=== PATIENT | male | born 1960 | race African-American/Black ===

== ENCOUNTER 2017-06-12 01:48 | Inpatient (IN) | payer MEDICARE ==
[2017-06-12] VITALS (14 sets, daily range): BP systolic 91–151; BP diastolic 59–109
[~2017-06-12] VITALS: Ht 175.3 cm; Wt 101.6 kg
[~2017-06-12 01:48] MED LIST: ASPIR 8181 MG PO; BACTRIM DS TAB1 EACH PO; JANUMET 50-1,01 EACH PO; LIPITOR10 MG PO; LISINOPRIL10 MG PO; METFORMIN HCL500 MG PO; NORCO 5-325 TA1 EACH PO; PLAVIX 75 MG TA75 M1 PO; PREDNISONE 10 M10 M1 PO; TRAMADOL 50 MG50 MG PO
[2017-06-12 02:06] LABS: HEMATOCRIT 39.1 % (42.0-52.0); MCH 25.6 pg (26.0-34.0); MCHC 33.2 g/dL (28.0-37.0); MCV 77.2 fL (80.0-100.0); MPV 7.8 fl. (7.2-11.1); NUCLEATED RBCS 0 /100WBC; PLATELET COUNT* 215 thou/uL (150-400); RBC 5.07 mil/uL (4.50-6.00); RDW-CV 15.8 % (10.5-14.5); WBC 7.5 thou/uL (4.0-11.0)
[2017-06-12] MEDS ORDERED: CARVEDILOL12.5 MG (02:06)
[2017-06-12] MEDS ORDERED: RANEXA500 MG (02:06)
[2017-06-12] MEDS ORDERED: NORVASC5 MG (02:06)
[2017-06-12] MEDS ORDERED: CITRACAL + BON1 EACH (02:07)
[2017-06-12] MEDS ORDERED: UNICOMPLEX M TA1 TA1 (02:07)
[2017-06-12] MEDS ORDERED: COQ-10100 MG (02:08)
[2017-06-12] MEDS ORDERED: OMEGA-31000 M1 (02:08)
[2017-06-12] MEDS ORDERED: OSTERA TABLET1 EAC1 (02:09)
[2017-06-12 02:16] LABS: INR 1.1; PROTIME 10.3 Seconds (9.20-11.50)
[2017-06-12 02:26] LABS: ABSOLUTE LYMPHOCYTES 0.9 thou/uL (0.8-5.3); ABSOLUTE MONOCYTES 0.8 thou/uL (0.0-1.2); ABSOLUTE NEUTROPHILS 5.8 thou/uL (1.6-8.1); ANISOCYTOSIS Occasional; PLATELET ESTIMATE ADEQUATE; TOXIC GRANULATION 1+
[2017-06-12 02:27] LABS: CLUMPED PLTS FEW
[2017-06-12 02:28] LABS: CALCIUM 9.3 mg/dL (8.5-10.1); CREATININE 1.1 mg/dL (0.6-1.3); POTASSIUM 3.7 mmol/L (3.5-5.1)
[2017-06-12 02:39] LABS: ALBUMIN 3.8 g/dL (3.4-5.0); TOTAL BILIRUBIN 0.4 mg/dL (<0.1-1.0); TOTAL PROTEIN 7.8 g/dL (6.4-8.2)
--- NOTE | 2017-06-12 04:54 | NUR ---
PT ADMIT TO AT 0340. PT ALERT ORIENTED. DENIES CP. UP AD KYREE. NO SLIP SOCKS PLACED ON PT. O2 AT 2 LITERS NC. NTG OINT ON L CHEST. TELEMETRY SHOWS SR. WILL CONTINUE TO MONITOR.
--- NOTE | 2017-06-12 06:39 | NUR ---
PT LAST TROPONIN 0.11. DR DOBBS NOTIFIED VIA YOU CALL
[2017-06-12 09:49] LABS: CHOLESTEROL 145 mg/dL (<200); HDL CHOLESTEROL 67 mg/dL (>40); LDL CHOLESTEROL 66 mg/dL (<100); TC:HDL 2.2 Ratio (Not establshd); TRIGLYCERIDE 63 mg/dL (<150); VLDL 13 mg/dL (<40)
[2017-06-12 09:50] LABS: SERUM ASSESSMENT Clear
--- NOTE | 2017-06-12 10:54 | NUR ---
PT BACK FROM SENIOR QUALITY TECHNICIAN. PLAN TO TRANSFER TO [facility] FOR CABG. DR FAUSTINO CHENEY. WILL AWAIT TRANSFER ORDERS
[2017-06-12] MEDS ORDERED: LEVAQUIN 500 M500 M2 PO (11:25)
--- NOTE | 2017-06-12 11:42 | EKG ---
[place] [address] ELECTROCARDIOGRAM REPORT Name: AYLEEN NASCIMENTO Room: [address] ADM IN .R.#: [id number] Admission: 06/12/17 Attend Phys: Kiran Navarro MD Discharge: Date of : 62 Report #: [id number] THIS REPORT FOR: //name// [facility] ED Test Date: 2017-06-12 Test Time: 01:51:58 Pat Name: AYLEEN NASCIMENTO Department: Room: [facility] Gender: M Oil Pit Attendant: JACQUELIN Simpson : 1960 Requested By: Maia Chapman Order Number: [id number] MD: Ash Lane Measurements Intervals [place] Rate: 68 P: 28 WI: 162 QRS: 13 QRSD: 96 T: 192 QT: 405 QTc: 431 Interpretive Statements Sinus rhythm LVH with secondary repolarization abnormality Compared to ECG 12/20/2016 14:17:03 No significant changes Electronically Signed On 06-12-2017 11:41:[address] [email or web address] <ELECTRONICALLY SIGNED> By: Ash Lane MD, [facility] 06/12/[address] MD, [facility] /EPI
--- NOTE | 2017-06-12 11:44 | NUR ---
CM ASSESSMENT: Pt is A&O. Resides at home with . Children in room at bedside. Plan for Pt to transfer to [facility] for open heart surgery. CM spoke with Nury with [facility] transfer team, awaiting call back with accepting Dr, room assignment and nurse report number. Chart copied. EMTALA form iniated, copy to be sent with Pt. Ambulance transport will be arranged at ct.
--- NOTE | 2017-06-12 11:46 | EKG ---
[place] [address] ELECTROCARDIOGRAM REPORT Name: AYLEEN NASCIMENTO Room: [address] ADM IN .R.#: [id number] Admission: 06/12/17 Attend Phys: Kiran Navarro MD Discharge: Date of : 62 Report #: [id number] THIS REPORT FOR: //name// [facility] Test Date: 2017-06-12 Test Time: 10:29:04 Pat Name: AYLEEN NASCIMENTO Department: Room: [address] Gender: M Observatory Director: : 1960 Requested By: Ash Lane Order Number: [id number] Sincere MD: Ash Lane Measurements Intervals [place] Rate: 71 P: 35 ME: 168 QRS: 21 QRSD: 91 T: 234 QT: 435 QTc: 473 Interpretive Statements Sinus rhythm Repol abnrm suggests ischemia, diffuse leads Electronically Signed On 06-12-2017 11:46:[address] [email or web address] <ELECTRONICALLY SIGNED> By: Ash Lane MD, [facility] 06/12/[address] MD, FACC /EPI
--- NOTE | 2017-06-12 18:13 | CARD ---
[address] [address] CARDIAC CATH REPORT Name: AYLEEN NASCIMENTO Room: [address] IN .#: [id number] Admission: 06/12/17 Attend Phys: Kiran Navarro MD Discharge: Date of : 62 Report #: [id number] THIS REPORT FOR: //name// APPROVED REPORT Study performed: 06/12/2017 08:57:26 Patient Details Patient Status: In-Patient Room #: The patient is a 56 year-old male Event Personnel Ash Lane Theater Projectionist, Juanito Vallejo (Rudi) Silver Macario James Monitor, Marisela Romano RN piano mechanic Performed cardiac cath Indication Unstable angina Risk Factors Arterial Hypertension, Hypercholesterolemia, Coronary Artery Disease, Diabetes Previous Procedures/Diagnoses Previous PCI Admission/Lab Medications/Medications given during procedure Heparin Low Molecular Weight Procedure Narrative The patient was brought electively to the Cardiac Catheterization Laboratory and was prepped and draped in a sterile manner. The right femoral was infiltrated with 1% Lidocaine subcutaneous anesthesia. A 6fr Ultimum Sheath sheath was inserted into the right femoral artery. Coronary angiography was performed using coronary diagnostic catheters. The right coronary system was accessed and visualized with a MTP catheter. The left coronary system was accessed and visualized with a Diagnostic - JL4 catheter. The left ventricle was accessed and visualized with a Diagnostic - PIGTAIL catheter. Left ventricular/Aortic Valve gradient assessed via catheter pullback. Left ventriculogram was performed in FLETCHER projection. Closure device was deployed with a 6 Fr Mynx. The patient tolerated the procedure well and there were no complications [place] [address] CARDIAC CATH REPORT Name: AYLEEN NASCIMENTO Room: [address]#: [id number] Admission: 06/12/17 Attend Phys: Kiran Navarro MD Discharge: Date of : 62 Report #: [id number] There was no hematoma. Patient was given lovenox 100 mg sq Intraoperative Conscious Sedation Fentanyl 25 mcg Versed 2 mg Fluoro Time: 7.6 minutes Dose: DAP 25451 cGycm2 1252 mGy Contrast Type and Amount: Omnipaque 230 ml Coronary Angiography The patient's coronary anatomy is co- dominant. Diagnostic Cath Left Main 0% stenosis LAD mid stent that covered the takeoff of the 3rd diagonal branch. 90% discrete stenosis in the stent Diagonal 3 long stent with tubular 80% stenosis Circumflex 30% mid stenosis Right Coronary unusual superior takeoff from the right cusp. Stents noted in the proximal and mid rca. Proximal stent had a tubular 70% restenosis. Distal 80% stenosis noted beyond the acute margin Left Ventriculography The left ventricular ejection fraction is estimated to be 30-35%. Left ventricular wall motion abnormalities are present. There is 1+ mitral insufficiency. akinesis noted of the distal anteroapical wall Hemodynamics The aortic pressure is 151/95 mmHg with a mean of 76 mmHg. The left ventricular pressure is 111/8 mmHg with a mean of mmHg. The left ventricular end diastolic pressure is 20 mmHg. There was no gradient across the aortic valve upon pullback. Pullback from the left ventricle to the aorta revealed no gradient across the aortic valve. Conclusion 1. moderate left ventricular systolic dysfunction 2. 90% restenosis of a stent in the mid lad 3. 80% restenosis of a stent in the 3rd diagonal branch 4. 70% restenosis of a stent in the proximal rca, and 80% stenosis noted in [place] [address] CARDIAC CATH REPORT Name: AZAMAYLEEN L Room: [address] IN [facility]#: [id number] Admission: 06/12/17 Attend Phys: Kiran Navarro MD Discharge: Date of : 62 Report #: [id number] Recommendations CABG <ELECTRONICALLY SIGNED> By: Ash Lane MD, FACC 06/12/171812 [address] MD, FACC /INF
--- NOTE | 2017-06-12 18:50 | NUR ---
PT HAD HEART CATH THIS AM. PLANNED TRANSFER TO [facility] FOR POSSIBLE CABG. PT DENIES CHEST PAIN. VSS. NO COMPLICATIONS FROM HEART CATH
--- NOTE | 2017-06-12 19:26 | NUR ---
REPORT CALLED TO BHARTI AT [facility] IN CCU. PT NOTIFIED OF DC. PT A&OX4. LEFT UNIT VIA CJC
[2017-06-13] MEDS ORDERED: PREDNISONE 5 MG5 M1 PO (09:49)
--- NOTE | 2017-06-13 13:18 | CON ---
[address] [address] CONSULTATION Name: AYLEEN NASCIMENTO Room: [address] IN M.R.#: [id number] Admission: 06/12/17 Attend Phys: Kiran Navarro MD Discharge: 06/12/17 Date of : 62 Report #: [id number] THIS REPORT FOR: //name// CC: Kiran Vazquez MD DATE OF SERVICE: 06/12/2017 HISTORY OF PRESENT ILLNESS: The patient is a 56-year-old black male who I was asked to see in the hospital today after he complained of chest pain. The patient initially presented to [facility] in 2011. He apparently underwent coronary artery stenting at [facility]. He had been followed by my partner, Dr. Becerril. He then presented to [place] last December with intermittent chest tightness. I saw him in consultation and felt his symptoms were consistent with unstable angina. I then performed a cardiac catheterization in December. This was performed from the right femoral artery. I attempted it from the right radial artery, but he had a very tortuous right innominate artery and it was therefore performed from the right femoral artery. Results, the LAD had a long stent that started proximal to the second diagonal branch and extended beyond the second diagonal branch, there is a 60% instent restenosis. The first diagonal branch had a proximal 50% stenosis and the second diagonal branch had a long stent with 80% restenosis. The right coronary had an usual takeoff at right coronary cusp, had a long proximal 95% restenosis, posterior descending branch had a mid 80% stenosis. No ventriculogram was performed. Aggrastat was used. A 6-Angolan multipurpose guide catheter was used because of the unusual takeoff of the right coronary ostium. I was unable to advance a drug-eluting stent to the area of stenosis. I therefore placed two bare-metal stents. He tolerated the procedure well. He is fortunately stopped smoking since that time. The patient saw me in the clinic in January. He then saw my nurse practitioner in April. The patient notes occasional lightheadedness. He was started on Ranexa and has had no further chest pain until the past few days. He has now had recurrent squeeze in the left side of his chest, relieved with nitroglycerin. It occurred several times a day. He had an episode last night that radiated into his left arm. Because of recurrent chest pain, he finally came to the emergency room last night and was admitted. He does note exertional dyspnea, but no palpitation, syncope, or edema. He has had no coughing or blood in stool. The pain is not related to food. He has had no trauma or rash on his chest. PAST MEDICAL HISTORY: Otherwise was significant for shoulder surgery, previous ruptured spleen, he was seen by Dr. Guo in the past and diagnosed with sarcoidosis. He has a history of diabetes, hypertension, and hyperlipidemia. MEDICATIONS: Consist of amlodipine, aspirin, Lipitor, carvedilol, Plavix, lisinopril, Ranexa, [place] [address] CONSULTATION Name: AYLEEN NASCIMENTO Room: [address]#: [id number] Admission: 06/12/17 Attend Phys: Kiran Navarro MD Discharge: 06/12/17 Date of : 62 Report #: [id number] ALLERGIES: He has no known drug allergies. FAMILY HISTORY: Heart disease runs in the family. SOCIAL HISTORY: He is . He and his live in [place]. He works as a cdl company driver. He previously smoked and quit in December, rarely drinks alcohol. REVIEW OF SYSTEMS: No history of stroke. He has sleep apnea, rarely uses CPAP. No history of peptic ulcer disease, liver disease, kidney disease, cancer, or psychiatric illness. PHYSICAL EXAMINATION: GENERAL: Revealed a middle-aged black male who appeared in no distress. VITAL SIGNS: Blood pressure 130/80, pulse is 60. He is afebrile. HEENT: He was anicteric. Conjunctivae are pink. Mucous membranes are moist. NECK: Veins do not appear distended. No carotid bruits. CHEST: Clear to auscultation. HEART: Regular rate and without murmur. ABDOMEN: Soft and nontender. EXTREMITIES: Had no edema. Dorsalis pedis pulse cannot be palpated. SKIN: Cool and dry. NEUROLOGIC: Nonfocal. DIAGNOSTIC DATA: His ECG last night showed a sinus rhythm, left ventricular hypertrophy, repolarization changes. There are no old EKGs to compare it to. His workup in the emergency room last night, he had a portable chest x-ray that showed apical scarring, old clavicular fracture, chronic scarring, chronic interstitial changes, atelectasis, no effusions. His lab work, his sodium 144, creatinine 1.1. His troponin was 0.11. His white blood cell count 7.5, hemoglobin 13. IMPRESSION AND RECOMMENDATIONS: 1. Unstable angina. Recommend repeat cardiac catheterization. 2. Hypertension. The patient has been on a calcium jimmy, beta jimmy and NILS inhibitor. 3. Hyperlipidemia. The patient is on a statin drug. 4. Sarcoidosis. The patient has been on chronic steroids. 5. Previous tobacco abuse. 6. Sleep apnea. The patient has not been using a CPAP. <ELECTRONICALLY SIGNED> By: Ash Lane MD, FACC 06/13/[address] MD, FACC /nt
--- NOTE | 2017-06-13 13:18 | CON ---
[address] [address] CONSULTATION Name: AYLEEN NASCIMENTO Room: [address] IN M.R.#: [id number] Admission: 06/12/17 Attend Phys: Kiran Navarro MD Discharge: 06/12/17 Date of : 62 Report #: [id number] THIS REPORT FOR: //name// CC: RINKU Vazquez DATE OF SERVICE: 06/12/2017 CARDIOLOGY CONSULTATION HISTORY OF PRESENT ILLNESS: The patient is a 56-year-old black male who was admitted in transfer from [facility] for consideration of coronary artery bypass surgery. The patient initially had stents placed in the LAD and diagonal at [facility] in 2011. He presented to [facility] in December 2016 with unstable angina. I performed a repeat cardiac catheterization in December 2016 at [facility] from the right femoral artery. No ventriculogram was performed. The stent in the mid LAD had 60% restenosis. The third diagonal branch had a long stent with a tubular 80% restenosis. The circumflex had a mild area of stenosis. The right coronary artery had ____ takeoff from the right coronary cusp. There was a 95% stenosis and a 60% narrowing prior to the acute margin. The distal right coronary artery had an 80% stenosis. I then placed two bare-metal stents in the proximal and mid right coronary artery. He has done well since that time taking aspirin and Plavix. However, he had recurrent angina and he was placed on Ranexa. The past few days, however, he has had frequent episodes of chest pressure every day. It is not related to food. He has had no bleeding. Denied any fever or cough. He does have exertional dyspnea, but no syncope. He was admitted to [facility] on the morning of June 12 after prolonged episode of chest pain. I performed repeat cardiac catheterization from the right femoral artery. This showed a discrete new 90% narrowing in the stent in the mid LAD. The third diagonal branch had a long stent with 80% restenosis. The circumflex had mild coronary artery disease. The stent in the proximal right coronary artery has 70% restenosis. The stent in the mid right coronary artery had no significant restenosis. There was an 80% stenosis of the distal right coronary artery. Ejection fraction was 35%. Because of his diffuse progressive coronary artery disease and left ventricular dysfunction, I have recommended that he be transferred to [facility] for consideration of coronary artery bypass surgery. PAST MEDICAL HISTORY: Significant for shoulder surgery, rupture of spleen in the past, diabetes, hypertension and hyperlipidemia. He was diagnosed with sarcoidosis in the past. MEDICATIONS: Consist of aspirin, Janumet, tramadol, Plavix, Lipitor, lisinopril, amlodipine, Ranexa and carvedilol. He [place] [address] CONSULTATION Name: AYLEEN NASCIMENTO [address] [id number] Admission: 06/12/17 Attend Phys: Kiran Navarro MD Discharge: 06/12/17 Date of : 62 Report #: [id number] ALLERGIES: He has no known drug allergies. FAMILY HISTORY: Heart disease runs in the family. SOCIAL HISTORY: He is . He and his live in [place], [place]. He is on disability because of sarcoidosis. He still drives a taxi. He quit smoking in last December. He rarely drinks alcohol. REVIEW OF SYSTEMS: He has had no history of stroke. He has sleep apnea, uses CPAP. No history of peptic ulcer disease, liver disease, kidney disease, cancer, psychiatric illness or chronic skin condition. PHYSICAL EXAMINATION: GENERAL: A middle-aged black male. VITAL SIGNS: Blood pressure was 140/90 and pulse 70. HEENT: Mucous members moist. NECK: No carotid bruits. CHEST: Clear to auscultation. CARDIOVASCULAR: Regular rate and rhythm. ABDOMEN: Soft and nontender. EXTREMITIES: Had no edema. Dorsalis pedis pulse cannot be palpated. SKIN: Warm and dry. IMPRESSION AND RECOMMENDATIONS: 1. Unstable angina. Severe progressive coronary artery disease, moderate left ventricular dysfunction. Recommends consideration of coronary artery bypass surgery. 2. Hypertension. The patient has been on angiotensin-converting enzyme inhibitor, calcium jimmy and beta-jimmy. 3. Diabetes. 4. Hyperlipidemia. The patient is on a statin drug. 5. Sarcoidosis. The patient is no longer on steroids. 6. Moderate left ventricular systolic dysfunction. The patient does not appear to be in heart failure at this time. <ELECTRONICALLY SIGNED> By: Ash Lane MD, [facility] 06/13/[address] MD, FAC /nt
[2017-06-24] MEDS ORDERED: LISINOPRIL5 MG PO (12:27)
[2017-06-24] MEDS ORDERED: PACERONE 200 M200 M1 PO (12:27)
[2017-06-24] MEDS ORDERED: HYDROCODONE-AP1 EAC6 PO (12:27)
[2017-06-24] MEDS ORDERED: ASA5UEC PO (12:27)
[2017-06-24] MEDS ORDERED: CARVEDILOL3.125 MG PO (12:27)
== END 2017-06-12 19:15 | disposition short-term general hospital (02) | DRG 281 ==
LOC: M.ERS 01:48 → M.2W 03:15 → M.TBA-ER 03:15 → M.ERS 03:28 → M.2W 03:37
PROVIDERS: Emergency Medicine; Internal Medicine; ADMIT Internal Medicine
PROC: 4A023N7 Measurement of Cardiac Sampling and Pressure, Left Heart, Percutaneous Approach (ICD-10-PCS; principal; 2017-06-12)
PROC: B2151ZZ Fluoroscopy of Left Heart using Low Osmolar Contrast (ICD-10-PCS; principal; 2017-06-12)
PROC: B2111ZZ Fluoroscopy of Multiple Coronary Arteries using Low Osmolar Contrast (ICD-10-PCS; principal; 2017-06-12)
DX: T82.855A Stenosis of coronary artery stent, initial encounter (principal); I21.4 Non-ST elevation (NSTEMI) myocardial infarction; I50.42 Chronic combined systolic (congestive) and diastolic (congestive) heart failure; E11.9 Type 2 diabetes mellitus without complications; D86.9 Sarcoidosis, unspecified; E78.5 Hyperlipidemia, unspecified; I10 Essential (primary) hypertension; G47.30 Sleep apnea, unspecified; Z79.82 Long term (current) use of aspirin; Z79.899 Other long term (current) drug therapy; Z82.49 Family history of ischemic heart disease and other diseases of the circulatory system; Z95.5 Presence of coronary angioplasty implant and graft; Z87.891 Personal history of nicotine dependence

== ENCOUNTER → 2017-07-06 | Outpatient (CLI) | payer MEDICARE ==
[~2017-07-06] MED LIST changes: +AMOXICILLIN875 MG PO; +ASA5UEC PO; +CARVEDILOL12.5 MG; +CARVEDILOL3.125 MG PO; +CITRACAL + BON1 EACH; +COQ-10100 MG; +HYDROCHLOROTH12.5 M1 PO; +HYDROCODONE-AP1 EAC6 PO; +LEVAQUIN 500 M500 M2 PO; +LISINOPRIL5 MG PO; +NAPROSYN500 M1 PO; +NORVASC5 MG; +OMEGA-31000 M1; +OSTERA TABLET1 EAC1; +PACERONE 200 M200 M1 PO; +PREDNISONE 5 MG5 M1 PO; +RANEXA500 MG; +UNICOMPLEX M TA1 TA1
== END ==
LOC: M.ULTRA 13:59
DX: M79.89 Other specified soft tissue disorders (principal); M79.622 Pain in left upper arm

== ENCOUNTER → 2017-07-09 | Outpatient (CLI) | payer MEDICARE | LOC: M.ULTRA 07-03 16:13 | DX: M79.622 Pain in left upper arm (principal); E78.00 Pure hypercholesterolemia, unspecified ==

== ENCOUNTER 2017-10-22 18:07 | Emergency (ER) | payer MEDICARE ==
[~2017-10-22] VITALS: Ht 177.8 cm; Wt 95.3 kg
[~2017-10-22 18:07] MED LIST changes: -AMOXICILLIN875 MG PO; -HYDROCHLOROTH12.5 M1 PO; -NAPROSYN500 M1 PO
[2017-10-22] MEDS ORDERED: HYDROCHLOROTH12.5 M1 PO (18:20)
[2017-10-22] MEDS ORDERED: NAPROSYN500 M1 PO (18:27)
[2017-10-22] MEDS ORDERED: AMOXICILLIN875 MG PO (18:27)
== END 2017-10-22 18:30 | disposition home or self-care (01) ==
LOC: M.ERS 18:07
DX: K02.9 Dental caries, unspecified (principal); E11.9 Type 2 diabetes mellitus without complications; I10 Essential (primary) hypertension; E78.5 Hyperlipidemia, unspecified; F17.210 Nicotine dependence, cigarettes, uncomplicated; Z95.5 Presence of coronary angioplasty implant and graft

== ENCOUNTER 2018-03-14 07:16 | Emergency (ER) | payer MEDICARE ==
[~2018-03-14] VITALS: Ht 175.3 cm; Wt 97.5 kg
[~2018-03-14 07:16] MED LIST changes: +AMOXICILLIN875 MG PO; +HYDROCHLOROTH12.5 M1 PO; +NAPROSYN500 M1 PO
[2018-03-14 07:25] VITALS: BP 138/95
[2018-03-14] MEDS ORDERED: FLEXERIL PO (07:44)
[2018-03-14] MEDS ORDERED: HYDROCODONE-AP1 EAC6 PO (07:44)
== END 2018-03-14 07:58 | disposition home or self-care (01) ==
LOC: M.ERS 07:16
DX: M54.5 Low back pain (principal); E11.9 Type 2 diabetes mellitus without complications; I10 Essential (primary) hypertension; E78.5 Hyperlipidemia, unspecified; F17.210 Nicotine dependence, cigarettes, uncomplicated; Z95.5 Presence of coronary angioplasty implant and graft

== ENCOUNTER 2018-04-20 00:07 | Emergency (ER) | payer MEDICARE ==
[~2018-04-20] VITALS: Ht 175.3 cm; Wt 99.8 kg
[~2018-04-20 00:07] MED LIST changes: +FLEXERIL PO
[2018-04-20 00:43] LABS: HEMATOCRIT 44.7 % (42.0-52.0); HEMOGLOBIN 14.9 gm/dL (14.0-18.0); MCH 25.8 pg (26.0-34.0); MCHC 33.3 g/dL (28.0-37.0); MCV 77.5 fL (80.0-100.0); MPV 8.4 fl. (7.2-11.1); NUCLEATED RBCS 0 /100WBC; PLATELET COUNT* 205 thou/uL (150-400); RBC 5.76 mil/uL (4.50-6.00); WBC 8.3 thou/uL (4.0-11.0)
[2018-04-20 00:48] LABS: ANION GAP 10 mmol/L (7-16); BUN 15 mg/dL (7-18); CHLORIDE 105 mmol/L (98-107); CO2 30 mmol/L (21-32); CREATININE 1.1 mg/dL (0.6-1.3); GLUCOSE 116 mg/dL (70-99); POTASSIUM 3.5 mmol/L (3.5-5.1); SODIUM 145 mmol/L (136-145)
[2018-04-20 00:50] LABS: PROTIME 10.1 Seconds (9.20-11.50)
[2018-04-20 00:59] LABS: ALBUMIN 3.8 g/dL (3.4-5.0); ALKALINE PHOSPHATASE 119 U/L (46-116); NT-PRO BRAIN NAT PEPTIDE 550 pg/mL (<300); SGOT 19 U/L (15-37); SGPT 40 U/L (30-65); TOTAL BILIRUBIN 0.4 mg/dL (<0.1-1.0); TOTAL PROTEIN 7.9 g/dL (6.4-8.2); TROPONIN-I LEVEL <0.06 ng/mL (<0.06)
[2018-04-20 02:25] LABS: ABSOLUTE EOSINOPHILS 0.2 thou/uL (0.0-0.7); ABSOLUTE LYMPHOCYTES 1.2 thou/uL (0.8-5.3); ABSOLUTE MONOCYTES 0.3 thou/uL (0.0-1.2); ABSOLUTE NEUTROPHILS 6.6 thou/uL (1.6-8.1)
[2018-04-20 02:26] LABS: PLATELET ESTIMATE ADEQUATE
[2018-04-20 02:27] LABS: ANISOCYTOSIS 1+
[2018-04-20 03:56] VITALS: BP 160/102
[2018-04-20 04:29] LABS: URINE BILIRUBIN NEGATIVE (Negative); URINE BLOOD TRACE (Negative); URINE CLARITY CLEAR; URINE COLOR YELLOW; URINE GLUCOSE-RANDOM NEGATIVE (Negative); URINE KETONES NEGATIVE (Negative); URINE LEUKOCYTES-REFLEX NEGATIVE (Negative); URINE NITRITE-REFLEX NEGATIVE (Negative); URINE PROTEIN NEGATIVE (Negative); URINE SPECIFIC GRAVITY <= 1.005 (1.005-1.030); URINE UROBILINOGEN 0.2 E.U./dl (0.2-1.0)
--- NOTE | 2018-04-20 16:30 | EKG ---
[place] [address] ELECTROCARDIOGRAM REPORT Name: AYLEEN NASCIMENTO [id number] Admission: 04/20/18 Attend Phys: Discharge: 04/20/18 Date of : 62 Report #: [id number] THIS REPORT FOR: //name// [facility] ED Test Date: 2018-04-20 Test Time: 00:14:15 Pat Name: AYLEEN NASCIMENTO Department: Room: Gender: M Blister Rust Eradicator: DANYELL : 1960 Requested By: Maia Chapman Order Number: [id number] MD: Brice Poole Measurements Intervals [place] Rate: 67 P: 9 MT: 157 QRS: 13 QRSD: 91 T: 147 QT: 421 QTc: 445 Interpretive Statements Sinus rhythm Left atrial enlargement LVH with secondary repolarization abnormality Compared to ECG 06/12/2017 10:29:04 Atrial abnormality now present Left ventricular hypertrophy now present Possible ischemia no longer present Electronically Signed On 04-20-2018 16:30:20 NON DESTRUCTIVE TESTER by Brice Poole [email or web address] <ELECTRONICALLY SIGNED> By: Brice Poole MD, [facility] 04/20/18 1630 0014 0014 Brice Poole MD, [facility] /EPI
== END 2018-04-20 03:57 | disposition home or self-care (01) ==
LOC: M.ERS 00:07
PROVIDERS: Emergency Medicine
DX: R07.89 Other chest pain (principal); G47.33 Obstructive sleep apnea (adult) (pediatric); E11.9 Type 2 diabetes mellitus without complications; I10 Essential (primary) hypertension; E78.5 Hyperlipidemia, unspecified; F17.210 Nicotine dependence, cigarettes, uncomplicated; Z95.5 Presence of coronary angioplasty implant and graft

== ENCOUNTER 2018-08-21 08:09 | Emergency (ER) | payer MEDICARE ==
[~2018-08-21] VITALS: Ht 177.8 cm; Wt 104.3 kg
[2018-08-21] MEDS ORDERED: PENICILLIN V P500 MG PO (08:43)
[2018-08-21] MEDS ORDERED: TORADOL 10 MG T10 MG PO (08:43)
[2018-08-21] MEDS ORDERED: NORCO 5-325 TA1 EAC1 PO (08:43)
[2018-08-21 08:54] VITALS: BP 155/100
== END 2018-08-21 08:54 | disposition home or self-care (01) ==
LOC: M.ERS 08:09
DX: K05.6 Periodontal disease, unspecified (principal); F17.210 Nicotine dependence, cigarettes, uncomplicated; M41.9 Scoliosis, unspecified; E11.9 Type 2 diabetes mellitus without complications; I10 Essential (primary) hypertension; E78.5 Hyperlipidemia, unspecified; G47.33 Obstructive sleep apnea (adult) (pediatric)

== ENCOUNTER 2018-12-02 22:39 | Emergency (ER) | payer MEDICARE ==
[~2018-12-02] VITALS: Ht 177.8 cm; Wt 95.3 kg
[~2018-12-02 22:39] MED LIST changes: +NORCO 5-325 TA1 EAC1 PO; +PENICILLIN V P500 MG PO; +TORADOL 10 MG T10 MG PO
[2018-12-02] MEDS ORDERED: ULTRAM 50MG TAB50 MG PO (23:02)
[2018-12-02] MEDS ORDERED: AMOXICILLIN 50500 MG PO (23:02)
[2018-12-02 23:08] VITALS: BP 214/121
== END 2018-12-02 23:08 | disposition home or self-care (01) ==
LOC: M.ERS 22:39
DX: K02.9 Dental caries, unspecified (principal); E78.5 Hyperlipidemia, unspecified; E11.9 Type 2 diabetes mellitus without complications; G47.33 Obstructive sleep apnea (adult) (pediatric); F17.210 Nicotine dependence, cigarettes, uncomplicated; Z95.5 Presence of coronary angioplasty implant and graft

== ENCOUNTER 2019-08-16 19:21 | Emergency (ER) | payer MEDICARE ==
[~2019-08-16] VITALS: Ht 177.8 cm; Wt 99.8 kg
[~2019-08-16 19:21] MED LIST changes: +AMOXICILLIN 50500 MG PO; +ULTRAM 50MG TAB50 MG PO
[2019-08-16] MEDS ORDERED: NAPROSYN500 MG PO (19:39)
[2019-08-16] MEDS ORDERED: AMOXICILLIN 50500 MG PO (19:39)
[2019-08-16 19:48] VITALS: BP 131/95
== END 2019-08-16 19:49 | disposition home or self-care (01) ==
LOC: M.ERS 19:21
DX: K08.89 Other specified disorders of teeth and supporting structures (principal); F17.210 Nicotine dependence, cigarettes, uncomplicated; I10 Essential (primary) hypertension; E78.5 Hyperlipidemia, unspecified; E11.9 Type 2 diabetes mellitus without complications; G47.33 Obstructive sleep apnea (adult) (pediatric); Z79.899 Other long term (current) drug therapy

== ENCOUNTER 2019-11-28 13:06 | Emergency (ER) | payer MEDICARE ==
[~2019-11-28] VITALS: Ht 175.3 cm; Wt 97.5 kg
[~2019-11-28 13:06] MED LIST changes: +NAPROSYN500 MG PO
[2019-11-28] MEDS ORDERED: MEDROLDOSEPACK PO (14:29)
[2019-11-28] MEDS ORDERED: NORCO 5-325 TA1 EAC2 PO (14:29)
[2019-11-28] MEDS ORDERED: NABUMETONE 750750 M1 PO (14:29)
[2019-11-28 14:57] VITALS: BP 130/82
== END 2019-11-28 14:58 | disposition home or self-care (01) ==
LOC: M.ERS 13:06
DX: M75.82 Other shoulder lesions, left shoulder (principal); I10 Essential (primary) hypertension; E11.9 Type 2 diabetes mellitus without complications; E78.5 Hyperlipidemia, unspecified; F17.210 Nicotine dependence, cigarettes, uncomplicated; Z79.899 Other long term (current) drug therapy

== ENCOUNTER 2020-02-05 06:18 | Emergency (ER) | payer MEDICARE ==
[~2020-02-05] VITALS: Ht 177.8 cm; Wt 99.8 kg
[~2020-02-05 06:18] MED LIST changes: +MEDROLDOSEPACK PO; +NABUMETONE 750750 M1 PO; +NORCO 5-325 TA1 EAC2 PO
[2020-02-05 06:55] LABS: HEMOGLOBIN 13.9 gm/dL (14.0-18.0); MCH 25.9 pg (26.0-34.0); MCV 78.4 fL (80.0-100.0); MPV 7.7 fl. (7.2-11.1); NUCLEATED RBCS 0 /100WBC; PLATELET COUNT* 228 thou/uL (150-400); RBC 5.35 mil/uL (4.50-6.00); RDW-CV 14.8 % (10.5-14.5); WBC 11.9 thou/uL (4.0-11.0)
[2020-02-05 07:09] LABS: CREATININE 1.2 mg/dL (0.6-1.3); POTASSIUM 4.4 mmol/L (3.5-5.1)
[2020-02-05 07:13] LABS: INR 0.9; PROTIME 10.1 Seconds (9.20-11.50)
[2020-02-05 07:19] LABS: ALBUMIN 3.4 g/dL (3.4-5.0); TOTAL BILIRUBIN 0.6 mg/dL (<0.1-1.0); TOTAL PROTEIN 6.9 g/dL (6.4-8.2)
[2020-02-05 07:20] LABS: ABSOLUTE LYMPHOCYTES 1.4 thou/uL (0.8-5.3); ABSOLUTE MONOCYTES 0.6 thou/uL (0.0-1.2); ABSOLUTE NEUTROPHILS 9.9 thou/uL (1.6-8.1); PLATELET ESTIMATE ADEQUATE
[2020-02-05] MEDS ORDERED: ZPAK PO (09:31)
[2020-02-05 09:46] VITALS: BP 119/91
--- NOTE | 2020-02-06 08:58 | EKG ---
[place] [address] ELECTROCARDIOGRAM REPORT Name: AZAMAYLEEN KENJI Room: [facility]#: [id number] Admission: 02/05/20 Attend Phys: Discharge: 02/05/20 Date of : 62 Date of Service: 02/05/20621 Report #: [id number] THIS REPORT FOR: //name// [facility] ED Test Date: 2020-02-05 Test Time: 06:22:54 Pat Name: AYLEEN NASCIMENTO Department: Room: Gender: Methods Examiner: : 1960 Requested By: Maia Chapman Order Number: [id number] MD: Ash Lane Measurements Intervals [place] Rate: 86 P: 31 ME: 139 QRS: 24 QRSD: 90 T: 200 QT: 331 QTc: 396 Interpretive Statements Sinus rhythm Consider left atrial enlargement LVH with secondary repolarization abnormality Compared to ECG 04/20/2018 00:14:15 No significant changes Electronically Signed On 02-06-2020 8:57:42 MANAGER MEDICAL WRITING by Ash Lane [email or web address] <ELECTRONICALLY SIGNED> By: Ash Lane MD, [facility] 02/06/[address] MD, [facility] /EPI
== END 2020-02-05 09:47 | disposition home or self-care (01) ==
LOC: M.ERS 06:18
PROVIDERS: Emergency Medicine
DX: R07.89 Other chest pain (principal); Z20.828 Contact with and (suspected) exposure to other viral communicable diseases; E11.9 Type 2 diabetes mellitus without complications; I10 Essential (primary) hypertension; E78.5 Hyperlipidemia, unspecified; G47.33 Obstructive sleep apnea (adult) (pediatric); F17.210 Nicotine dependence, cigarettes, uncomplicated; Z95.5 Presence of coronary angioplasty implant and graft

== ENCOUNTER 2020-11-11 19:05 | Emergency (ER) | payer OTHER ==
[~2020-11-11] VITALS: Ht 177.8 cm; Wt 93.0 kg
[~2020-11-11 19:05] MED LIST changes: +ZPAK PO
[2020-11-11] MEDS ORDERED: METFORMIN HCL500 M3 PO (19:18)
[2020-11-11] MEDS ORDERED: FUROSEMIDE 20 M20 M1 PO (19:19)
[2020-11-11] MEDS ORDERED: KLOR-CON M2020 MEQ PO (19:19)
[2020-11-11] MEDS ORDERED: LISINOPRIL5 MG PO (19:20)
[2020-11-11] MEDS ORDERED: LIPITOR40 MG PO (19:20)
[2020-11-11] MEDS ORDERED: ASA81BEC PO (19:20)
[2020-11-11] MEDS ORDERED: AMARYL4 MG PO (19:20)
[2020-11-11] MEDS ORDERED: SOLIQUA 100 UNIT3 ML SUBQ (19:21)
[2020-11-11 20:24] LABS: ABSOLUTE BASOPHILS 0.1 thou/uL (0.0-0.2); ABSOLUTE EOSINOPHILS 0.1 thou/uL (0.0-0.7); ABSOLUTE LYMPHOCYTES 0.8 thou/uL (0.8-5.3); ABSOLUTE MONOCYTES 0.5 thou/uL (0.0-1.2); EOSINOPHILS 1.7 %; HEMATOCRIT 39.6 % (42.0-52.0); HEMOGLOBIN 12.5 gm/dL (14.0-18.0); LYMPHOCYTES 14.7 %; MCHC 31.7 g/dL (28.0-37.0); MPV 7.5 fl. (7.2-11.1); NUCLEATED RBCS 0 /100WBC; PLATELET COUNT* 256 thou/uL (150-400); POLYS 72.6 %; RBC 5.01 mil/uL (4.50-6.00); RDW-CV 16.3 % (10.5-14.5); WBC 5.5 thou/uL (4.0-11.0)
[2020-11-11 20:37] LABS: CREATININE 0.9 mg/dL (0.6-1.3); POTASSIUM 3.8 mmol/L (3.5-5.1)
[2020-11-11 20:39] LABS: APTT 25.6 Seconds (25.0-31.3); PROTIME 10.6 Seconds (9.20-11.50)
[2020-11-11 20:48] LABS: ALBUMIN 3.7 g/dL (3.4-5.0); TOTAL BILIRUBIN 0.6 mg/dL (<0.1-1.0); TOTAL PROTEIN 7.2 g/dL (6.4-8.2)
[2020-11-12] MEDS ORDERED: ACETAMINOPHEN-1 EAC2 PO (01:24)
[2020-11-12] MEDS ORDERED: LEVAQUIN 500 M500 MG PO (01:24)
[2020-11-12 01:40] VITALS: BP 178/105
--- NOTE | 2020-11-12 12:28 | EKG ---
[place] [address] ELECTROCARDIOGRAM REPORT Name: AZAMAYLEENKORI PHILLIP Room: [facility]#: [id number] Admission: 11/11/20 Attend Phys: Discharge: 11/12/20 Date of : 62 Date of Service: 11/11/201906 Report #: [id number] THIS REPORT FOR: //name// [facility] ED Test Date: 2020-11-11 Test Time: 19:07:53 Pat Name: AYLEEN NASCIMENTO Department: Room: Gender: Life Support Technician: AUTUMN : 1960 Requested By: Mireille Romero Order Number: [id number] MD: Brice Poole Measurements Intervals [place] Rate: 70 P: 36 NM: 153 QRS: 12 QRSD: 92 T: 166 QT: 401 QTc: 433 Interpretive Statements Sinus rhythm Probable left atrial enlargement LVH with secondary repolarization abnormality Baseline wander in lead(s) II,III,aVR,aVF Compared to ECG 02/05/2020 06:22:54 No significant changes Electronically Signed On 11-12-2020 12:28:10 CDT by Brice Poole [email or web address] <ELECTRONICALLY SIGNED> By: Brice Poole MD, FACC 11/12/20 1228 06 06 Brice Poole MD, FACC /EPI
== END 2020-11-12 01:40 | disposition home or self-care (01) ==
LOC: M.ERS 19:05
PROVIDERS: Personal Emergency Response Attendant
DX: J18.9 Pneumonia, unspecified organism (principal); I16.0 Hypertensive urgency; R07.89 Other chest pain; M25.512 Pain in left shoulder; R42 Dizziness and giddiness; R20.2 Paresthesia of skin; E11.9 Type 2 diabetes mellitus without complications; I10 Essential (primary) hypertension; E78.5 Hyperlipidemia, unspecified; M19.90 Unspecified osteoarthritis, unspecified site; F17.210 Nicotine dependence, cigarettes, uncomplicated; Z79.82 Long term (current) use of aspirin; Z95.5 Presence of coronary angioplasty implant and graft; Z79.899 Other long term (current) drug therapy

== ENCOUNTER 2021-01-28 11:41 | Inpatient (IN) | payer OTHER ==
[~2021-01-28] VITALS: Ht 177.8 cm; Wt 92.0 kg
[~2021-01-28 11:41] MED LIST changes: +ACETAMINOPHEN-1 EAC2 PO; +AMARYL4 MG PO; +ASA81BEC PO; +FUROSEMIDE 20 M20 M1 PO; +KLOR-CON M2020 MEQ PO; +LEVAQUIN 500 M500 MG PO; +LIPITOR40 MG PO; +METFORMIN HCL500 M3 PO; +SOLIQUA 100 UNIT3 ML SUBQ
[2021-01-28 11:54] VITALS: BP 79/59
[2021-01-28] MEDS ORDERED: CARVEDILOL12.5 MG PO (12:00)
[2021-01-28] MEDS ORDERED: PREDNISONE 10 M10 MG PO (12:01)
[2021-01-28] MEDS ORDERED: SOLIQUA 100 UNIT3 ML (12:02)
[2021-01-28 12:26] LABS: ABSOLUTE LYMPHOCYTES 0.3 thou/uL (0.8-5.3); HEMATOCRIT 41.7 % (42.0-52.0); HEMOGLOBIN 13.9 gm/dL (14.0-18.0); MCH 25.2 pg (26.0-34.0); MCHC 33.4 g/dL (28.0-37.0); MCV 75.4 fL (80.0-100.0); MPV 8.2 fl. (7.2-11.1); NUCLEATED RBCS 0 /100WBC; PLATELET COUNT* 160 thou/uL (150-400); RBC 5.54 mil/uL (4.50-6.00); RDW-CV 15.8 % (10.5-14.5); WBC 5.4 thou/uL (4.0-11.0)
[2021-01-28 12:27] LABS: BE -6.1 mmol/L (-2 to +3); PCO2 VENOUS 37.6 mmHg (41.0-51.0); PO2 VENOUS 54.8 mmHg (35.0-45.0)
--- NOTE | 2021-01-28 12:38 | EKG ---
[place] [address] ELECTROCARDIOGRAM REPORT Name: AZAMAYLEEN KENJI Room: [facility]#: [id number] Admission: 01/28/21 Attend Phys: Discharge: Date of : 62 Date of Service: 01/28/21 1147 Report #: [id number] THIS REPORT FOR: //name// [facility] ED Test Date: 2021-01-28 Test Time: 11:47:33 Pat Name: AYLEEN NASCIMENTO Department: Room: Gender: Marketing Teacher: : 1960 Requested By: Jeffery Murray Order Number: [id number] MD: Ash Lane Measurements Intervals [place] Rate: 77 P: 41 OR: 145 QRS: 9 QRSD: 108 T: 93 QT: 383 QTc: 434 Interpretive Statements Sinus rhythm Left ventricular hypertrophy Nonspecific T abnrm, anterolateral leads Baseline wander in lead(s) V2 Compared to ECG 11/11/2020 19:07:53 no change Electronically Signed On 01-28-2021 12:37:57 CORN HUSKER MACHINE OPERATOR by Ash Lane [email or web address] <ELECTRONICALLY SIGNED> By: Ash Lane MD, FACC 01/28/[address] MD, [facility] /EPI
[2021-01-28 12:50] LABS: CALCIUM 8.8 mg/dL (8.5-10.1); CREATININE 2.4 mg/dL (0.6-1.3)
[2021-01-28 12:57] LABS: POTASSIUM 6.1 mmol/L (3.5-5.1)
[2021-01-28 13:07] LABS: ABSOLUTE NEUTROPHILS 4.9 thou/uL (1.6-8.1)
[2021-01-28 13:10] LABS: ABSOLUTE MONOCYTES 0.2 thou/uL (0.0-1.2)
[2021-01-28 13:11] LABS: PLATELET ESTIMATE ADEQUATE
[2021-01-28 13:28] LABS: ALBUMIN 2.5 g/dL (3.4-5.0); TOTAL BILIRUBIN 0.5 mg/dL (<0.1-1.0); TOTAL PROTEIN 7.4 g/dL (6.4-8.2)
[2021-01-28 13:50] LABS: POTASSIUM 5.5 mmol/L (3.5-5.1)
[2021-01-28 18:04] VITALS: BP 105/75
[2021-01-28 18:25] VITALS: BP 143/89
[2021-01-28 22:00] VITALS: BP 140/97
[2021-01-29 00:59] VITALS: BP 115/69
[2021-01-29 04:35] VITALS: BP 97/69
[2021-01-29 04:38] LABS: HEMATOCRIT 40.3 % (42.0-52.0); HEMOGLOBIN 13.1 gm/dL (14.0-18.0); MCH 24.6 pg (26.0-34.0); MCHC 32.5 g/dL (28.0-37.0); MCV 75.5 fL (80.0-100.0); MPV 8.4 fl. (7.2-11.1); RBC 5.34 mil/uL (4.50-6.00); RDW-CV 15.9 % (10.5-14.5); WBC 4.4 thou/uL (4.0-11.0)
[2021-01-29 04:58] LABS: ALBUMIN 2.2 g/dL (3.4-5.0); CALCIUM 8.8 mg/dL (8.5-10.1); MAGNESIUM 2.1 mg/dL (1.8-2.4); POTASSIUM 5.8 mmol/L (3.5-5.1); TOTAL BILIRUBIN 0.4 mg/dL (<0.1-1.0); TOTAL PROTEIN 6.9 g/dL (6.4-8.2)
[2021-01-29 08:00] VITALS: BP 118/65
[2021-01-29 10:58] LABS: PCO2 31.2 mmHg (35.0-45.0); PO2 88.4 mmHg (75.0-100.0); pH 7.377 (7.340-7.450)
[2021-01-29 12:14] VITALS: BP 142/93
[2021-01-29 14:08] LABS: CALCIUM 8.9 mg/dL (8.5-10.1); CREATININE 1.1 mg/dL (0.6-1.3); POTASSIUM 5.4 mmol/L (3.5-5.1)
[2021-01-29 16:09] VITALS: BP 144/96
[2021-01-29 19:28] LABS: URINE BILIRUBIN NEGATIVE (Negative); URINE BLOOD NEGATIVE (Negative); URINE CLARITY CLEAR; URINE COLOR YELLOW; URINE GLUCOSE-RANDOM 3+ (Negative); URINE KETONES NEGATIVE (Negative); URINE LEUKOCYTES NEGATIVE (Negative); URINE NITRITE NEGATIVE (Negative); URINE PROTEIN NEGATIVE (Negative); URINE SPECIFIC GRAVITY 1.015 (1.005-1.030); URINE UROBILINOGEN 0.2 E.U./dl (0.2-1.0)
[2021-01-29 20:00] VITALS: BP 113/84
[2021-01-30 00:12] VITALS: BP 132/98
[2021-01-30 04:00] VITALS: BP 124/88
[2021-01-30 08:00] VITALS: BP 136/90
[2021-01-30 09:32] LABS: HEMATOCRIT 43.1 % (42.0-52.0); HEMOGLOBIN 14.1 gm/dL (14.0-18.0); MCH 24.9 pg (26.0-34.0); MCHC 32.7 g/dL (28.0-37.0); MCV 76.2 fL (80.0-100.0); MPV 7.9 fl. (7.2-11.1); NUCLEATED RBCS 0 /100WBC; RBC 5.66 mil/uL (4.50-6.00); RDW-CV 15.7 % (10.5-14.5)
[2021-01-30 09:50] LABS: PLATELET COUNT* 276 thou/uL (150-400)
[2021-01-30 09:51] LABS: ALBUMIN 2.5 g/dL (3.4-5.0); APTT 31.8 Seconds (25.0-31.3); CALCIUM 9.1 mg/dL (8.5-10.1); CREATININE 1.1 mg/dL (0.6-1.3); INR 1.2; MAGNESIUM 2.1 mg/dL (1.8-2.4); PHOSPHORUS* 3.8 mg/dL (2.5-4.9); POTASSIUM 5.1 mmol/L (3.5-5.1); PROTIME 11.9 Seconds (9.20-11.50); TOTAL BILIRUBIN 0.4 mg/dL (<0.1-1.0); TOTAL PROTEIN 6.6 g/dL (6.4-8.2)
[2021-01-30 10:13] LABS: ABSOLUTE LYMPHOCYTES 0.3 thou/uL (0.8-5.3); ABSOLUTE MONOCYTES 0.2 thou/uL (0.0-1.2); ABSOLUTE NEUTROPHILS 7.4 thou/uL (1.6-8.1)
[2021-01-30 10:14] LABS: PLATELET ESTIMATE ADEQUATE
[2021-01-30 12:00] VITALS: BP 155/100
[2021-01-30 16:00] VITALS: BP 125/69
[2021-01-30 19:15] VITALS: BP 133/92
[2021-01-31] VITALS (7 sets, daily range): BP systolic 105–149; BP diastolic 75–103
[2021-01-31 04:14] LABS: ALBUMIN 2.2 g/dL (3.4-5.0); CREATININE 0.9 mg/dL (0.6-1.3); POTASSIUM 4.4 mmol/L (3.5-5.1); TOTAL BILIRUBIN 0.4 mg/dL (<0.1-1.0); TOTAL PROTEIN 6.3 g/dL (6.4-8.2)
[2021-01-31 04:28] LABS: ABSOLUTE LYMPHOCYTES 0.1 thou/uL (0.8-5.3); ABSOLUTE MONOCYTES 0.2 thou/uL (0.0-1.2); ABSOLUTE NEUTROPHILS 6.1 thou/uL (1.6-8.1); BASOPHILS 0.2 %; HEMATOCRIT 38.7 % (42.0-52.0); HEMOGLOBIN 12.5 gm/dL (14.0-18.0); LYMPHOCYTES 1.3 %; MCH 24.6 pg (26.0-34.0); MCHC 32.2 g/dL (28.0-37.0); MCV 76.4 fL (80.0-100.0); MONOCYTES 3.4 %; MPV 7.9 fl. (7.2-11.1); NUCLEATED RBCS 0 /100WBC; POLYS 95.1 %; RBC 5.07 mil/uL (4.50-6.00); RDW-CV 15.8 % (10.5-14.5); WBC 6.4 thou/uL (4.0-11.0)
[2021-01-31 05:24] LABS: PLATELET COUNT* 87 thou/uL (150-400)
[2021-01-31 16:05] LABS: ABSOLUTE LYMPHOCYTES 0.1 thou/uL (0.8-5.3); ABSOLUTE MONOCYTES 0.4 thou/uL (0.0-1.2); ABSOLUTE NEUTROPHILS 10.6 thou/uL (1.6-8.1); BASOPHILS 0.3 %; HEMATOCRIT 40.7 % (42.0-52.0); HEMOGLOBIN 13.5 gm/dL (14.0-18.0); LYMPHOCYTES 0.7 %; MCH 24.7 pg (26.0-34.0); MCHC 33.1 g/dL (28.0-37.0); MCV 74.7 fL (80.0-100.0); MONOCYTES 3.8 %; MPV 7.9 fl. (7.2-11.1); NUCLEATED RBCS 0 /100WBC; POLYS 95.2 %; RBC 5.44 mil/uL (4.50-6.00); RDW-CV 15.8 % (10.5-14.5); WBC 11.1 thou/uL (4.0-11.0)
[2021-01-31 16:09] LABS: CALCIUM 9.3 mg/dL (8.5-10.1); CREATININE 1.1 mg/dL (0.6-1.3); MAGNESIUM 1.9 mg/dL (1.8-2.4); POTASSIUM 3.7 mmol/L (3.5-5.1)
[2021-01-31 17:13] LABS: PLATELET COUNT* 313 thou/uL (150-400)
[2021-02-01 00:34] VITALS: BP 112/82
[2021-02-01 04:42] VITALS: BP 118/82
[2021-02-01 08:00] VITALS: BP 123/81
[2021-02-01 09:39] LABS: ABSOLUTE LYMPHOCYTES 0.1 thou/uL (0.8-5.3); ABSOLUTE MONOCYTES 0.4 thou/uL (0.0-1.2); HEMOGLOBIN 13.3 gm/dL (14.0-18.0); MONOCYTES 3.7 %; NUCLEATED RBCS 0 /100WBC
[2021-02-01 09:41] LABS: ABSOLUTE NEUTROPHILS 9.2 thou/uL (1.6-8.1); HEMATOCRIT 40.6 % (42.0-52.0); LYMPHOCYTES 0.8 %; MCH 24.7 pg (26.0-34.0); MCHC 32.8 g/dL (28.0-37.0); MCV 75.3 fL (80.0-100.0); MPV 7.8 fl. (7.2-11.1); PLATELET COUNT* 303 thou/uL (150-400); POLYS 95.5 %; RDW-CV 15.6 % (10.5-14.5); WBC 9.6 thou/uL (4.0-11.0)
[2021-02-01 09:49] LABS: ALBUMIN 2.3 g/dL (3.4-5.0); CALCIUM 9.1 mg/dL (8.5-10.1); CREATININE 0.9 mg/dL (0.6-1.3); TOTAL BILIRUBIN 0.5 mg/dL (<0.1-1.0); TOTAL PROTEIN 6.6 g/dL (6.4-8.2)
[2021-02-01 11:30] VITALS: BP 123/82
[2021-02-01 16:24] VITALS: BP 131/86
[2021-02-01 19:40] VITALS: BP 135/92
[2021-02-02] VITALS (10 sets, daily range): BP systolic 120–135; BP diastolic 85–95
[2021-02-02 04:19] LABS: ABSOLUTE LYMPHOCYTES 0.1 thou/uL (0.8-5.3); ABSOLUTE MONOCYTES 0.2 thou/uL (0.0-1.2); ABSOLUTE NEUTROPHILS 10.1 thou/uL (1.6-8.1); HEMATOCRIT 41.1 % (42.0-52.0); HEMOGLOBIN 13.4 gm/dL (14.0-18.0); LYMPHOCYTES 0.8 %; MCH 24.5 pg (26.0-34.0); MCHC 32.6 g/dL (28.0-37.0); MCV 74.9 fL (80.0-100.0); MONOCYTES 2.3 %; MPV 7.8 fl. (7.2-11.1); NUCLEATED RBCS 0 /100WBC; PLATELET COUNT* 305 thou/uL (150-400); POLYS 96.9 %; RBC 5.48 mil/uL (4.50-6.00); RDW-CV 15.5 % (10.5-14.5); WBC 10.4 thou/uL (4.0-11.0)
[2021-02-02 04:29] LABS: ALBUMIN 2.3 g/dL (3.4-5.0); CREATININE 0.9 mg/dL (0.6-1.3); MAGNESIUM 2.1 mg/dL (1.8-2.4); POTASSIUM 4.4 mmol/L (3.5-5.1); TOTAL BILIRUBIN 0.5 mg/dL (<0.1-1.0); TOTAL PROTEIN 6.8 g/dL (6.4-8.2)
[2021-02-03] VITALS (23 sets, daily range): BP systolic 92–148; BP diastolic 64–109
[2021-02-03 12:19] LABS: HEMATOCRIT 42.5 % (42.0-52.0); HEMOGLOBIN 13.8 gm/dL (14.0-18.0); MCH 24.4 pg (26.0-34.0); MCHC 32.5 g/dL (28.0-37.0); MCV 75.1 fL (80.0-100.0); MPV 7.5 fl. (7.2-11.1); NUCLEATED RBCS 0 /100WBC; PLATELET COUNT* 284 thou/uL (150-400); RBC 5.65 mil/uL (4.50-6.00); RDW-CV 15.9 % (10.5-14.5); WBC 12.8 thou/uL (4.0-11.0)
[2021-02-03 12:38] LABS: ALBUMIN 2.2 g/dL (3.4-5.0); CALCIUM 9.1 mg/dL (8.5-10.1); CREATININE 0.9 mg/dL (0.6-1.3); MAGNESIUM 2.2 mg/dL (1.8-2.4); POTASSIUM 3.9 mmol/L (3.5-5.1); TOTAL BILIRUBIN 0.6 mg/dL (<0.1-1.0); TOTAL PROTEIN 6.8 g/dL (6.4-8.2)
[2021-02-03 12:55] LABS: ABSOLUTE EOSINOPHILS 0.1 thou/uL (0.0-0.7); ABSOLUTE LYMPHOCYTES 0.4 thou/uL (0.8-5.3); ABSOLUTE MONOCYTES 0.4 thou/uL (0.0-1.2); ABSOLUTE NEUTROPHILS 11.9 thou/uL (1.6-8.1); PLATELET ESTIMATE ADEQUATE
[2021-02-03 16:23] LABS: URINE BILIRUBIN NEGATIVE (Negative); URINE BLOOD NEGATIVE (Negative); URINE CLARITY CLEAR; URINE COLOR YELLOW; URINE GLUCOSE-RANDOM NEGATIVE (Negative); URINE KETONES 1+ (Negative); URINE LEUKOCYTES NEGATIVE (Negative); URINE NITRITE NEGATIVE (Negative); URINE PROTEIN NEGATIVE (Negative); URINE UROBILINOGEN 0.2 E.U./dl (0.2-1.0)
[2021-02-04] VITALS (16 sets, daily range): BP systolic 98–145; BP diastolic 74–99
[2021-02-04 11:32] LABS: ABSOLUTE EOSINOPHILS 0.1 thou/uL (0.0-0.7); ABSOLUTE LYMPHOCYTES 0.1 thou/uL (0.8-5.3); ABSOLUTE MONOCYTES 0.3 thou/uL (0.0-1.2); ABSOLUTE NEUTROPHILS 13.6 thou/uL (1.6-8.1); BASOPHILS 0.2 %; EOSINOPHILS 0.4 %; HEMATOCRIT 38.7 % (42.0-52.0); HEMOGLOBIN 12.5 gm/dL (14.0-18.0); LYMPHOCYTES 0.6 %; MCH 24.6 pg (26.0-34.0); MCHC 32.2 g/dL (28.0-37.0); MCV 76.4 fL (80.0-100.0); MONOCYTES 1.9 %; MPV 7.8 fl. (7.2-11.1); NUCLEATED RBCS 0 /100WBC; PLATELET COUNT* 237 thou/uL (150-400); POLYS 96.9 %; RBC 5.07 mil/uL (4.50-6.00); RDW-CV 16.3 % (10.5-14.5)
[2021-02-04 12:02] LABS: BE -5.6 mmol/L (-2 to +3); PCO2 32.3 mmHg (35.0-45.0); pH 7.377 (7.340-7.450)
[2021-02-04 12:06] LABS: PO2 54.4 mmHg (75.0-100.0)
[2021-02-04 12:17] LABS: ALBUMIN 1.7 g/dL (3.4-5.0); CALCIUM 9.2 mg/dL (8.5-10.1); CREATININE 0.9 mg/dL (0.6-1.3); POTASSIUM 4.8 mmol/L (3.5-5.1); TOTAL BILIRUBIN 0.5 mg/dL (<0.1-1.0); TOTAL PROTEIN 6.2 g/dL (6.4-8.2)
--- NOTE | 2021-02-04 14:32 | 2DMMODE ---
[place] [address] 2 D/M-MODE ECHOCARDIOGRAM Name: AZAMAYLEENKORI PHILLIP Room: [address] ADM IN .R.#: [id number] Admission: 01/28/21 Attend Phys: Rolo Groves Discharge: Date of : 62 Date of Service: 02/04/21 1432 Report #: [id number] THIS REPORT FOR: cc: Juanito Vazquez MD, Anthony MD Holkins,Derrick Waters MD [facility] ~ APPROVED REPORT Study performed: 02/04/2021 10:43:10 EXAM: Comprehensive 2D, Doppler, and color-flow Echocardiogram Patient Location: In-Patient Room #: 105 Status: routine BSA: 2.06 HR: 63 bpm BP: 109/75 mmHg Rhythm: NSR Other Information Study Quality: Good Indications Dyspnea 2D Dimensions IVSd: 14.78 (7-11mm) LVOT Diam: 22.81 (18-24mm) LVDd: 48.91 mm PWd: 12.42 (7-11mm) Ascending Ao: 36.11 (22-36mm) LVDs: 36.37 (25-40mm) Aortic Root: 35.46 mm Volumes Left Atrial Volume (Systole) LA ESV Index: 31.00 mL/m2 Aortic Valve AoV Peak Greg.: 1.39 m/s AO Peak Gr.: 7.77 mmHg LVOT Max P.75 mmHg AO Mean Gr.: 3.89 mmHg LVOT Mean P.32 mmHg LVOT Max V: 0.83 m/s AO V2 VTI: 24.22 cm LVOT Mean V: 0.53 m/s JOSELINE (VTI): 2.67 cm2 LVOT V1 VTI: 15.84 [place] [address] 2 D/M-MODE ECHOCARDIOGRAM Name: AYLEEN NASCIMENTO Room: [address] IN ..#: [id number] Admission: 01/28/21 Attend Phys: Rolo Groves Discharge: Date of : 62 Date of Service: 02/04/21 1432 Report #: [id number] Mitral Valve E/A Ratio: 0.77 MV Decel. Time: 269.35 ms MV E Max Greg.: 0.60 m/s MV PHT: 78.11 ms MVA (PHT): 2.82 cm2 TDI E/Lateral E': 7.50 Lateral E' Greg.: 0.08 m/s Pulmonary Valve PV Peak Greg.: 0.71 m/s PV Peak Gr.: 2.01 mmHg Left Ventricle The left ventricle is normal size. There is normal LV segmental wall motion. Mild concentric left ventricular hypertrophy. Left ventricular systolic function is mildly decreased. LVEF is 50%. Grade I - abnormal relaxation pattern. Right Ventricle The right ventricle is normal size. The right ventricular systolic function is normal. Atria The left atrium size is normal. The right atrium size is normal. Aortic Valve Mild aortic valve sclerosis. No aortic regurgitation is present. There is no aortic valvular stenosis. Mitral Valve The mitral valve is normal in structure. There is no mitral valve regurgitation noted. No evidence of mitral valve stenosis. Tricuspid Valve The tricuspid valve is normal in structure. Unable to assess PA pressure. Trace tricuspid regurgitation. Pulmonic Valve The pulmonary valve is normal in structure. There is no pulmonic valvular regurgitation. Great Vessels The aortic root is normal in size. IVC [place] [address] 2 D/M-MODE ECHOCARDIOGRAM Name: AYLEEN NASCIMENTO Room: [address]#: [id number] Admission: 01/28/21 Attend Phys: Rolo Groves Discharge: Date of : 62 Date of Service: 02/04/21 1432 Report #: [id number] collapses >50% with inspiration. Pericardium There is no pericardial effusion. <Conclusion> The left ventricle is normal size. Mild concentric left ventricular hypertrophy. Left ventricular systolic function is mildly decreased. LVEF is 50%. Grade I - abnormal relaxation pattern. The right ventricle is normal size. The left atrium size is normal. Mild aortic valve sclerosis. No aortic regurgitation is present. There is no aortic valvular stenosis. The mitral valve is normal in structure. The tricuspid valve is normal in structure. IVC is normal in size and collapses >50% with inspiration. There is no pericardial effusion. There is normal LV segmental wall motion. <ELECTRONICALLY SIGNED> By: Derrick Short MD, [facility] 02/04/21 [phone] Derrick Short MD, FACC /INF
--- NOTE | 2021-02-04 16:22 | CON ---
[address] [address] CONSULTATION Name: AZAMAYLEEN KENJI Room: [address] IN M.R.#: [id number] Admission: 01/28/21 Attend Phys: Viji Reid Discharge: Date of : 62 Report #: [id number] THIS REPORT FOR: cc: Juanito Vazquez MD, Anthony MD Pervez,August PEACOCK ~ DATE OF CONSULTATION: 01/29/2021 Consult has been requested by Dr. Thomson. INDICATION FOR CONSULTATION: Acute hypoxemic respiratory failure secondary to COVID-19. HISTORY OF PRESENT ILLNESS: A 60-year-old gentleman, past medical history includes a history of sarcoidosis. The patient is on prednisone long-term. He also has an extensive history of smoking in the past, discontinued in 2017. States that he uses inhalers at home and also does have obstructive sleep apnea and uses a CPAP at home. At this time, the patient is admitted with acute shortness of breath of several days' duration. He also had altered mental status. On initial presentation, was hypotensive and was found to be in acute renal failure, creatinine of 2.4. Note that his baseline creatinine is normal. Since then, he has been fluid resuscitated. He is also being treated with dexamethasone and remdesivir. He appears to have been responding favorably to therapy. At the time of my evaluation this morning, the patient still was fairly tachypneic and was on a BiPAP with high-flow oxygen. I am told that he has improved further since then and is currently on 11 liters of oxygen. The patient previously has been significantly tachypneic, but note that he did have a metabolic acidosis on his labs, which would partially account for it. The potassium initially was 6.1 and is trending downwards. He has significantly elevated blood glucose at 370. He does have a cough. He did not describe how much sputum production he had. He does not have much swelling of lower extremities. There is no calf pain. He was on BiPAP and I evaluated him and therefore his ability to answer questions to review of systems was limited; however his review of systems is negative for 12 points except as mentioned above. PAST MEDICAL HISTORY: Sarcoidosis. He is on prednisone long-term. Bronchospasm. He is on long-term therapy for this. He may have underlying COPD as well. Sarcoidosis by itself can also cause bronchospasm. Coronary artery disease. He has had stents in the past. His last available echocardiogram is from 2015 and shows a left ventricular ejection fraction decreased to 40-45% without elevation in right heart pressures, diabetes, right shoulder surgery, [place] [address] CONSULTATION Name: AYLEEN NASCIMENTO Room: [address] ADM IN M.R.#: [id number] Admission: 01/28/21 Attend Phys: Viji Reid Discharge: Date of : 62 Report #: [id number] surgery, obstructive sleep apnea, CPAP long-term, status post CABG, hypertension, hyperlipidemia. SOCIAL HISTORY: Extensive history of smoking, discontinued in 2017. No known history of heavy alcohol use or illegal drug use. CURRENT MEDICATIONS: List in [employer] reviewed. HOME MEDICATIONS: List in [employer] also reviewed. Note that he is on long-term therapy with prednisone. ALLERGIES: No known drug allergies. FAMILY HISTORY: No pertinent family history. PHYSICAL EXAMINATION: GENERAL: He was alert, awake and oriented at the time of my evaluation. VITAL SIGNS: He was on a BiPAP at 70% FiO2 and was saturating 100%, but was still tachypneic with respiratory rate in the low 30s. I am told that his respiratory status since then has improved and he is currently breathing around 20 and off BiPAP on a 10-11 liters high-flow nasal cannula. He has a pulse of 92 and a blood pressure of 144/96. He has been saturating 100%. He is afebrile with a temperature of 36.6, low-grade fever overnight at 37.4. HEENT: Head is normocephalic and atraumatic. NECK: Does not show raised JVP, asymmetry, mass or lymph nodes. CHEST: Symmetrical expansion on inspection and palpation. On auscultation, breath sounds bilaterally equal. No added sounds. HEART: Regular. There is no murmur. ABDOMEN: Soft and nontender. EXTREMITIES: Lower extremities, no edema, no calf tenderness. SKIN: Dry and intact. NEUROLOGIC: Moves all extremities bilaterally equally and spontaneously with no focal deficit identified. LABORATORY DATA: Reviewed. Note that he has 5% bands initially, he was also in acute renal failure, which is getting better. His blood glucose is 370. There is a mild metabolic acidosis, which is compensated on his blood gases. He does have COVID-19 antigen positive. ASSESSMENT AND PLAN: 1. Acute hypoxemic respiratory failure secondary to COVID-19. Recommend keeping him on a BiPAP while asleep; okay to be off BiPAP when awake. 2. COVID-19. I agree with continuing with dexamethasone as well as remdesivir, follow liver function tests. Actemra may be of benefit; however, we do not have [address] [place] [address] CONSULTATION Name: AYLEEN NASCIMENTO Room: [address] IN .R.#: [id number] Admission: 01/28/21 Attend Phys: Viji Reid Discharge: Date of : 62 Report #: [id number] it available. I considered as to whether I should increased the dexamethasone dose considering that he is on prednisone long-term at home; however, he is reported to have had improvement in his respiratory status. His blood glucose is markedly elevated at 370; therefore, I decided to hold off for now or this will be a consideration later. 3. Pulmonary infiltrates. Note that he is on long-term prednisone and also he has 5% bands initially. Therefore, I would continue with the doxycycline, would recommend adding cefepime. Recommend also obtaining a nasal swab for methicillin-resistant Staphylococcus aureus, if possible, obtain sputum culture as well. 4. Sarcoidosis. He is a long-term therapy with prednisone. 5. Bronchospastic lung disease/possible chronic obstructive pulmonary disease; he has an extensive history of smoking. It is possible he has chronic obstructive pulmonary disease as well; sarcoidosis by itself also can cause bronchospasm. Regardless, this therapy, the same for now, we will continue with steroids. We will continue with nebulized bronchodilators. 6. Acute renal failure/hyperkalemia/mild metabolic acidosis, appears to have a favorable response to therapy already ordered by primary service and Nephrology. We will follow along. 7. Evaluation for thromboembolic phenomena. He had a reduced left ventricular ejection fraction previously. Therefore, I would go ahead and repeat an echo. We will also do a D-dimer. If elevated, will consider doing venous Dopplers. The patient, however, appears to be high risk for contrast nephropathy and therefore unless strongly indicated, I would perhaps be inclined to hold off on consider doing a CTA chest. 8. Diabetes/hyperglycemia. Pending review by the primary service. I ordered moderate dose insulin sliding scale as blood glucose is 370. 9. Deep venous thrombosis prophylaxis, Lovenox. 10. Gastrointestinal prophylaxis, on Pepcid. 11. Clostridium difficile prophylaxis, Lactinex. The patient is critically ill at this time. Total time spent providing critical care to this patient today exceeds 40 minutes. <ELECTRONICALLY SIGNED> By: August Milian MD 02/04/21 1622 [id number] Milian MD /nt
[2021-02-05] VITALS (13 sets, daily range): BP systolic 102–161; BP diastolic 71–93
[2021-02-05 09:25] LABS: ABSOLUTE BASOPHILS 0.1 thou/uL (0.0-0.2); ABSOLUTE LYMPHOCYTES 0.1 thou/uL (0.8-5.3); ABSOLUTE MONOCYTES 0.4 thou/uL (0.0-1.2); ABSOLUTE NEUTROPHILS 17.9 thou/uL (1.6-8.1); BASOPHILS 0.6 %; HEMATOCRIT 38.1 % (42.0-52.0); HEMOGLOBIN 12.2 gm/dL (14.0-18.0); LYMPHOCYTES 0.5 %; MCH 24.1 pg (26.0-34.0); MCHC 31.9 g/dL (28.0-37.0); MCV 75.5 fL (80.0-100.0); MONOCYTES 2.3 %; MPV 8.4 fl. (7.2-11.1); NUCLEATED RBCS 0 /100WBC; PLATELET COUNT* 287 thou/uL (150-400); POLYS 96.6 %; RBC 5.05 mil/uL (4.50-6.00); RDW-CV 16.2 % (10.5-14.5); WBC 18.5 thou/uL (4.0-11.0)
[2021-02-05 10:20] LABS: BE -4.5 mmol/L (-2 to +3); pH 7.374 (7.340-7.450)
[2021-02-05 10:56] LABS: ALBUMIN 2.1 g/dL (3.4-5.0); CALCIUM 9.4 mg/dL (8.5-10.1); CREATININE 0.9 mg/dL (0.6-1.3); POTASSIUM 4.1 mmol/L (3.5-5.1); TOTAL BILIRUBIN 0.5 mg/dL (<0.1-1.0); TOTAL PROTEIN 6.3 g/dL (6.4-8.2)
[2021-02-05 17:11] LABS: CALCIUM 9.5 mg/dL (8.5-10.1); CREATININE 0.9 mg/dL (0.6-1.3); MAGNESIUM 2.3 mg/dL (1.8-2.4); POTASSIUM 3.6 mmol/L (3.5-5.1)
[2021-02-06] VITALS (12 sets, daily range): BP systolic 106–123; BP diastolic 73–91
[2021-02-06 03:21] LABS: HEMATOCRIT 36.6 % (42.0-52.0); HEMOGLOBIN 11.7 gm/dL (14.0-18.0); MCH 23.9 pg (26.0-34.0); MCHC 31.9 g/dL (28.0-37.0); MCV 75.1 fL (80.0-100.0); MPV 7.9 fl. (7.2-11.1); NUCLEATED RBCS 0 /100WBC; PLATELET COUNT* 268 thou/uL (150-400); RBC 4.87 mil/uL (4.50-6.00); RDW-CV 16.2 % (10.5-14.5); WBC 17.9 thou/uL (4.0-11.0)
[2021-02-06 03:55] LABS: ALBUMIN 2.8 g/dL (3.4-5.0); CALCIUM 9.6 mg/dL (8.5-10.1); CREATININE 0.9 mg/dL (0.6-1.3); MAGNESIUM 2.4 mg/dL (1.8-2.4); POTASSIUM 3.9 mmol/L (3.5-5.1); TOTAL BILIRUBIN 0.5 mg/dL (<0.1-1.0); TOTAL PROTEIN 6.8 g/dL (6.4-8.2)
[2021-02-06 06:10] LABS: ABSOLUTE LYMPHOCYTES 0.7 thou/uL (0.8-5.3); ABSOLUTE NEUTROPHILS 17.2 thou/uL (1.6-8.1)
[2021-02-06 06:11] LABS: PLATELET ESTIMATE ADEQUATE
[2021-02-06 16:49] LABS: BE -2.2 mmol/L (-2 to +3); PCO2 VENOUS 41.1 mmHg (41.0-51.0); PO2 VENOUS 57.6 mmHg (35.0-45.0)
[2021-02-06 16:53] LABS: CALCIUM 9.6 mg/dL (8.5-10.1); MAGNESIUM 2.5 mg/dL (1.8-2.4)
[2021-02-07] VITALS (23 sets, daily range): BP systolic 98–140; BP diastolic 63–95
[2021-02-07 10:21] LABS: ABSOLUTE LYMPHOCYTES 0.1 thou/uL (0.8-5.3); ABSOLUTE MONOCYTES 0.7 thou/uL (0.0-1.2); ABSOLUTE NEUTROPHILS 19.8 thou/uL (1.6-8.1); BASOPHILS 0.2 %; EOSINOPHILS 0.1 %; HEMATOCRIT 39.5 % (42.0-52.0); HEMOGLOBIN 12.7 gm/dL (14.0-18.0); LYMPHOCYTES 0.3 %; MCH 24.4 pg (26.0-34.0); MCHC 32.2 g/dL (28.0-37.0); MCV 75.8 fL (80.0-100.0); MONOCYTES 3.2 %; MPV 7.9 fl. (7.2-11.1); NUCLEATED RBCS 0 /100WBC; PLATELET COUNT* 275 thou/uL (150-400); POLYS 96.2 %; RBC 5.21 mil/uL (4.50-6.00); RDW-CV 15.8 % (10.5-14.5); WBC 20.6 thou/uL (4.0-11.0)
[2021-02-07 10:53] LABS: ALBUMIN 2.8 g/dL (3.4-5.0); CALCIUM 9.8 mg/dL (8.5-10.1); CREATININE 0.8 mg/dL (0.6-1.3); POTASSIUM 4.3 mmol/L (3.5-5.1); TOTAL BILIRUBIN 0.5 mg/dL (<0.1-1.0)
[2021-02-07 17:24] LABS: CALCIUM 9.7 mg/dL (8.5-10.1); CREATININE 0.9 mg/dL (0.6-1.3); POTASSIUM 4.5 mmol/L (3.5-5.1)
[2021-02-08] VITALS (69 sets, daily range): BP systolic 47–212; BP diastolic 29–141
[2021-02-08 07:30] LABS: HEMOGLOBIN 13.1 gm/dL (14.0-18.0)
[2021-02-08 07:32] LABS: ABSOLUTE EOSINOPHILS 0.1 thou/uL (0.0-0.7); ABSOLUTE LYMPHOCYTES 0.2 thou/uL (0.8-5.3); ABSOLUTE MONOCYTES 0.6 thou/uL (0.0-1.2); ABSOLUTE NEUTROPHILS 23.6 thou/uL (1.6-8.1); BASOPHILS 0.2 %; EOSINOPHILS 0.3 %; HEMATOCRIT 41.4 % (42.0-52.0); LYMPHOCYTES 0.9 %; MCH 24.5 pg (26.0-34.0); MCHC 31.7 g/dL (28.0-37.0); MCV 77.3 fL (80.0-100.0); MONOCYTES 2.6 %; MPV 8.2 fl. (7.2-11.1); NUCLEATED RBCS 0 /100WBC; PLATELET COUNT* 245 thou/uL (150-400); RBC 5.35 mil/uL (4.50-6.00); RDW-CV 16.4 % (10.5-14.5); WBC 24.5 thou/uL (4.0-11.0)
[2021-02-08 07:43] LABS: ALBUMIN 2.9 g/dL (3.4-5.0); CALCIUM 9.7 mg/dL (8.5-10.1); CREATININE 0.9 mg/dL (0.6-1.3); MAGNESIUM 2.6 mg/dL (1.8-2.4); PHOSPHORUS* 3.4 mg/dL (2.5-4.9); POTASSIUM 4.3 mmol/L (3.5-5.1); TOTAL BILIRUBIN 0.5 mg/dL (<0.1-1.0); TOTAL PROTEIN 7.1 g/dL (6.4-8.2)
[2021-02-08 08:10] LABS: BE 0.9 mmol/L (-2 to +3); PCO2 48.6 mmHg (35.0-45.0); pH 7.363 (7.340-7.450)
[2021-02-08 08:12] LABS: PO2 47.6 mmHg (75.0-100.0)
[2021-02-08 10:57] LABS: LIPASE 79 U/L (73-393); TRIGLYCERIDE 123 mg/dL (<150)
[2021-02-08 11:49] LABS: BE 1.2 mmol/L (-2 to +3); PO2 63.8 mmHg (75.0-100.0)
[2021-02-08 11:51] LABS: PCO2 66.7 mmHg (35.0-45.0); pH 7.271 (7.340-7.450)
[2021-02-08 14:31] LABS: BE -6.4 mmol/L (-2 to +3)
[2021-02-08 14:36] LABS: PCO2 71.2 mmHg (35.0-45.0); pH 7.148 (7.340-7.450)
[2021-02-08 16:00] LABS: BE -5.6 mmol/L (-2 to +3)
[2021-02-08 16:03] LABS: PCO2 66.4 mmHg (35.0-45.0)
[2021-02-08 17:04] LABS: HEMATOCRIT 43.1 % (42.0-52.0); HEMOGLOBIN 13.3 gm/dL (14.0-18.0); MCH 24.1 pg (26.0-34.0); MCHC 30.9 g/dL (28.0-37.0); MCV 78.2 fL (80.0-100.0); MPV 8.5 fl. (7.2-11.1); RBC 5.52 mil/uL (4.50-6.00); WBC 23.1 thou/uL (4.0-11.0)
[2021-02-08 17:12] LABS: CALCIUM 8.4 mg/dL (8.5-10.1); CREATININE 1.8 mg/dL (0.6-1.3); MAGNESIUM 2.7 mg/dL (1.8-2.4)
[2021-02-08 17:13] LABS: POTASSIUM 5.5 mmol/L (3.5-5.1)
[2021-02-08 20:23] LABS: BE -12.1 mmol/L (-2 to +3)
[2021-02-08 20:28] LABS: PCO2 70.2 mmHg (35.0-45.0); PO2 54.7 mmHg (75.0-100.0); pH 7.062 (7.340-7.450)
[2021-02-08 21:45] LABS: PCO2 70.3 mmHg (35.0-45.0); pH 7.006 (7.340-7.450)
[2021-02-08 21:45] LABS: CALCIUM 8.7 mg/dL (8.5-10.1); MAGNESIUM 2.9 mg/dL (1.8-2.4)
[2021-02-08 21:48] LABS: POTASSIUM 6.4 mmol/L (3.5-5.1)
[2021-02-08 21:49] LABS: CREATININE 3.4 mg/dL (0.6-1.3)
[2021-02-09] VITALS (16 sets, daily range): BP systolic 39–85; BP diastolic 14–64
[2021-02-09 01:11] LABS: BE -19.9 mmol/L (-2 to +3)
[2021-02-09 01:20] LABS: PO2 55.3 mmHg (75.0-100.0)
[2021-02-09 05:08] LABS: HEMATOCRIT 51.7 % (42.0-52.0); HEMOGLOBIN 14.8 gm/dL (14.0-18.0); MCH 24.1 pg (26.0-34.0); MCHC 28.6 g/dL (28.0-37.0); MPV 9.9 fl. (7.2-11.1); NUCLEATED RBCS 1 /100WBC; RBC 6.12 mil/uL (4.50-6.00); RDW-CV 17.5 % (10.5-14.5); WBC 14.8 thou/uL (4.0-11.0)
[2021-02-09 05:19] LABS: BE -22.5 mmol/L (-2 to +3)
[2021-02-09 05:22] LABS: PCO2 54.4 mmHg (35.0-45.0); PO2 55.1 mmHg (75.0-100.0); pH 6.904 (7.340-7.450)
[2021-02-09 05:24] LABS: ALBUMIN 1.6 g/dL (3.4-5.0); CALCIUM 7.4 mg/dL (8.5-10.1); CREATININE 4.1 mg/dL (0.6-1.3); MAGNESIUM 2.3 mg/dL (1.8-2.4); TOTAL BILIRUBIN 1.6 mg/dL (<0.1-1.0); TOTAL PROTEIN 4.4 g/dL (6.4-8.2)
[2021-02-09 05:26] LABS: POTASSIUM 6.3 mmol/L (3.5-5.1)
[2021-02-09 05:31] LABS: MCV 84.4 fL (80.0-100.0); PLATELET COUNT* 80 thou/uL (150-400)
[2021-02-09 07:18] LABS: ABSOLUTE LYMPHOCYTES 0.3 thou/uL (0.8-5.3); ABSOLUTE MONOCYTES 2.1 thou/uL (0.0-1.2); ABSOLUTE NEUTROPHILS 12.4 thou/uL (1.6-8.1)
[2021-02-09 07:22] LABS: ANISOCYTOSIS 1+; GIANT PLATELETS FEW; HYPOCHROMASIA 1+; PLATELET ESTIMATE DECREASED
[2021-02-09 07:45] LABS: BE -16.1 mmol/L (-2 to +3)
[2021-02-09 07:50] LABS: PCO2 62.3 mmHg (35.0-45.0); PO2 50.4 mmHg (75.0-100.0); pH 7.005 (7.340-7.450)
[2021-02-10 12:06] LABS: MYCOPLASMA PNEUMONIA IgM <770 U/mL (0-769)
[2021-02-10 14:06] LABS: MYCOPLASMA PNEUMONIA IgG 328 U/mL (0-99)
== END 2021-02-09 08:37 | DRG 208 ==
LOC: M.ERS 11:41 → M.TBA-ER 13:53 → M.ORTHSURG 13:53 → M.ICU 02-02 19:00
PROVIDERS: Emergency Medicine; Internal Medicine; Internal Medicine Critical Care Medicine; Pediatrics; ADMIT Internal Medicine; ATTEND Internal Medicine
PROC: 5A0935A Assistance with Respiratory Ventilation, Less than 24 Consecutive Hours, High Flow/Velocity Cannula (ICD-10-PCS; principal; 2021-01-28)
PROC: 5A09357 Assistance with Respiratory Ventilation, Less than 24 Consecutive Hours, Continuous Positive Airway Pressure (ICD-10-PCS; principal; 2021-01-28)
PROC: XW033E5 Introduction of Remdesivir Anti-infective into Peripheral Vein, Percutaneous Approach, New Technology Group 5 (ICD-10-PCS; principal; 2021-01-28)
PROC: 5A09357 Assistance with Respiratory Ventilation, Less than 24 Consecutive Hours, Continuous Positive Airway Pressure (ICD-10-PCS; 2021-01-30)
PROC: 5A0935A Assistance with Respiratory Ventilation, Less than 24 Consecutive Hours, High Flow/Velocity Cannula (ICD-10-PCS; 2021-01-30)
PROC: 5A09357 Assistance with Respiratory Ventilation, Less than 24 Consecutive Hours, Continuous Positive Airway Pressure (ICD-10-PCS; 2021-01-31)
PROC: 5A0935A Assistance with Respiratory Ventilation, Less than 24 Consecutive Hours, High Flow/Velocity Cannula (ICD-10-PCS; 2021-01-31)
PROC: 5A0935A Assistance with Respiratory Ventilation, Less than 24 Consecutive Hours, High Flow/Velocity Cannula (ICD-10-PCS; 2021-02-01)
PROC: 5A09457 Assistance with Respiratory Ventilation, 24-96 Consecutive Hours, Continuous Positive Airway Pressure (ICD-10-PCS; 2021-02-01)
PROC: 5A1935Z Respiratory Ventilation, Less than 24 Consecutive Hours (ICD-10-PCS; 2021-02-08)
PROC: 0BH17EZ Insertion of Endotracheal Airway into Trachea, Via Natural or Artificial Opening (ICD-10-PCS; 2021-02-08)
PROC: 5A12012 Performance of Cardiac Output, Single, Manual (ICD-10-PCS; 2021-02-08)
DX: U07.1 COVID-19 (principal); J96.01 Acute respiratory failure with hypoxia; N17.0 Acute kidney failure with tubular necrosis; J12.82 Pneumonia due to coronavirus disease 2019; J96.02 Acute respiratory failure with hypercapnia; D61.818 Other pancytopenia; J44.0 Chronic obstructive pulmonary disease with (acute) lower respiratory infection; E78.5 Hyperlipidemia, unspecified; G47.33 Obstructive sleep apnea (adult) (pediatric); I10 Essential (primary) hypertension; D86.9 Sarcoidosis, unspecified; E87.5 Hyperkalemia; E11.65 Type 2 diabetes mellitus with hyperglycemia; I95.9 Hypotension, unspecified; Z96.611 Presence of right artificial shoulder joint; I25.10 Atherosclerotic heart disease of native coronary artery without angina pectoris; I46.9 Cardiac arrest, cause unspecified; Z95.1 Presence of aortocoronary bypass graft; Z87.891 Personal history of nicotine dependence